=== PATIENT | female | born 1995 | race Caucasian/White ===

== ENCOUNTER 2022-03-28 06:42 | Emergency (ER) | payer BC, SELFPAY ==
[2022-03-28 06:45] VITALS: BMI 26.6
--- NOTE | 2022-03-28 06:48 | W.ED.NAVMDI ---
HPI - Nausea/Vomiting/Diarrhea General: Chief complaint: Nausea/Vomiting/Diarrhea Stated complaint: GERD Time Seen by Provider: 03/28/22 06:45 Source: patient Mode of arrival: ambulatory History of Present Illness: 26-year-old female presents to the ER via EMS complaining of persistent nausea and vomiting. She has not been at our facility for but she did offer to EMS. She has been hospitalized for this before. She states to her understanding this is due to reflux. She states the only thing that works for her is fluids Valium and morphine. Patient states she is on something for her stomach she is also on an inhaler. She did not know the specific names. She was hospitalized for similar episodes last months in [facility]. She denies any hematemesis coffee-ground emesis hematochezia or melena. MD elicited complaint: nausea and vomiting Description of vomiting: watery and bilious Associated nausea: Yes Location of pain: Diffuse Radiation: diffuse Pain consistency: constant Severity: moderate Quality: cramping Exacerbating factors: none Relieving factors: none Associated symtoms: Reports anorexia and nausea; Denies altered mental status, anxiety, bloating, change in vision, chest pain, cough, diaphoresis, decreased urine output, dizziness, dysuria, epistaxis, fatigue, fecal incontinence, fevers/chills, headache(s), malaise, myalgias, numbness, palpitations, rash, short of breath, syncope, tenesmus, tinnitus or weakness Review of Systems Const: Denies: fever(s), chills, fatigue, malaise or diaphoresis Eyes: Denies: change in vision ENMT: Denies: throat pain, tinnitus or epistaxis Card: Denies: chest pain, palpitations or syncope Resp: Denies: dyspnea, productive cough or non-productive cough GI: Reports: abdominal pain, nausea, vomiting and heartburn; Denies: hematemesis, coffee ground emesis, diarrhea, bloating or fecal incontinence : Denies: difficulty voiding, dysuria, urinary frequency or urinary urgency Skin/Breast: Denies: rash or pruritus Neuro: Denies: headache(s) or dizziness Psych: Denies: anxiety PFSH ED PFSH: Medical History (Updated 03/28/22 @ 09:26 by Jesu Brown DO) Cyclical vomiting Reflux esophagitis Surgical History (Updated 03/28/22 @ 06:54 by Jesu Brown DO) No pertinent past surgical history Social History (Updated 03/28/22 @ 06:55 by Jesu Brown DO) Smoking and tobacco status: current some day smoker Alcohol intake: never Substance/Drug Use: current Substance/Drug use type: Marijuana Physical Exam Const: COMMON NORMALS: no acute distress EXAM LIMITATIONS: no altered mental status GENERAL APPEARANCE: cooperative and comfortable ORIENTATION/CONSCIOUSNESS: Yes awake, Yes oriented to person, Yes oriented to place and Yes oriented to time HENMT: COMMON NORMALS: normocephalic, atraumatic and hearing grossly normal bilaterally HEAD & SCALP: normocephalic and atraumatic Resp: COMMON NORMALS: normal respiratory effort, No retractions, No use of accessory muscles and clear to auscultation bilaterally AUSCULTATION: clear to auscultation bilaterally Cardio: COMMON NORMALS: regular rate, regular rhythm and No murmurs present (Cardio) RATE: regular rate RHYTHM: regular rhythm GI: COMMON NORMALS: Soft to palpation and No hepatosplenomegaly present AUSCULTATION: Yes normoactive bowel sounds PALPATION: Yes Soft to palpation, No Tenderness to palpation present (GI), No Guarding due to palpation present (GI) and Yes No hepatosplenomegaly present Extremity: COMMON NORMALS: normal to inspection, capillary refill normal, no clubbing, cyanosis or edema, no calf tenderness and no pedal edema Neuro: SENSORIUM/ORIENTATION: Yes oriented to person, Yes oriented to place and Yes oriented to time Skin: COMMON NORMALS: no rashes or lesions noted GENERAL SKIN EXAM: no rashes or lesions noted Course Vital Signs: Vital signs: Vital Signs Temperature 97.4 F L 03/28/22 09:00 Pulse Rate 71 03/28/22 10:00 Respiratory Rate 18 03/28/22 10:00 Blood Pressure 136/79 03/28/22 09:00 Pulse Oximetry 100 03/28/22 10:00 Oxygen Delivery Me thod 03/28/22 07:20 MDM - Nausea/Vomiting/Diarrhea Medical Decision Making Labs and imaging reviewed. Nausea vomiting resolved with medications given patient does regularly use marijuana. She has had visits this is due to her reflux. Discussed with her at that reflux generally does not cause this type of symptoms. Recommend abstinence from marijuana can use olanzapine and buccal Ativan as needed for recurrence clear liquid diet for today then advance as tolerated. Medical Records I reviewed the patient's medical records. Lab Data I reviewed the patient's lab results. 03/28/22 07:24 12 07:24 Laboratory Results WBC 13.8 10^3/uL (4.0-10.0) H 03/28/22 07:24 RBC 4.94 10^6/uL (4.1-5.3) 03/28/22 07:24 Hgb 14.5 g/dL (11.5-15.3) 03/28/22 07:24 Hct 42.9 % (37.0-47.0) 03/28/22 07:24 MCV 86.8 fl (81-99) 03/28/22 07:24 MCH 29.4 pg (28.0-34.0) 03/28/22 07:24 MCHC 33.8 g/dL (30.0-36.0) 03/28/22 07:24 RDW 13.6 % (12.1-15.1) 03/28/22 07:24 Plt Count 282 10^3/cmm (130-400) 03/28/22 07:24 MPV 11.6 fL (7.4-10.4) H 03/28/22 07:24 Neut % (Auto) 79.9 % 03/28/22 07:24 Lymph % (Auto) 12.7 % 03/28/22 07:24 [place] % (Auto) 5.4 % 03/28/22 07:24 Eos % (Auto) 1.3 % 03/28/22 07:24 Baso % (Auto) 0.4 % 03/28/22 07:24 Neut # (Auto) 10.99 10^3/uL (1.8-7.7) H 03/28/22 07:24 Lymph # (Auto) 1.8 10^3/uL (0.8-4.8) 03/28/22 07:24 Saline # (Auto) 0.7 10^3/uL (0.2-0.9) 03/28/22 07:24 Eos # (Auto) 0.2 10^3/uL (0.0-0.8) 03/28/22 07:24 Baso # (Auto) 0.1 10^3/uL (0.0-0.1) 03/28/22 07:24 Nucleated RBC % (auto) 0 % 03/28/22 07:24 Nucleated RBCs # 0.0 /100WBC 03/28/22 07:24 Sodium 140 mmol/L (136-145) 03/28/22 07:24 Potassium 4.5 mmol/L (3.5-5.1) 03/28/22 07:24 Chloride 106 mmol/L (98-107) 03/28/22 07:24 Carbon Dioxide 16 mmol/L (22-29) L 03/28/22 07:24 Anion Gap 22.5 (5-19) H 03/28/22 07:24 BUN 6 mg/dL (6-20) 03/28/22 07:24 Creatinine 0.8 mg/dL (0.5-0.9) 03/28/22 07:24 GFR Calculation 85.4 mL/min (90-130) L 03/28/22 07:24 Glucose 141 mg/dL (65-115) H 03/28/22 07:24 Calculated Osmolality 290 mOsm/kg (285-295) 03/28/22 07:24 Calcium 9.8 mg/dL (8.5-10.5) 03/28/22 07:24 Total Bilirubin 0.3 mg/dL (0.15-1.2) 03/28/22 07:24 AST 21 U/L (0-32) 03/28/22 07:24 ALT 16 U/L (0-33) 03/28/22 07:24 Alkaline Phosphatase 92 U/L (35-105) 03/28/22 07:24 Total Protein 7.0 g/dL (6.6-8.7) 03/28/22 07:24 Albumin 4.5 g/dL (3.5-5.2) 03/28/22 07:24 Globulin 2.5 g/dL (1.3-4.6) 03/28/22 07:24 HCG, Qual Negative (Negative) 03/28/22 07:24 Urine Color Yellow (Yellow) 03/28/22 08:17 Urine Appearance Clear (CLEAR) 03/28/22 08:17 Urine pH 8 (5-7) H 03/28/22 08:17 Ur Specific [place] 1.010 (1.005-1.030) 03/28/22 08:17 Urine Protein Neg (Negative) 03/28/22 08:17 Urine Glucose (UA) Norm (Normal) 03/28/22 08:17 Urine Ketones 2+ (Negative) H 03/28/22 08:17 Urine Blood 2+ (Negative) H 03/28/22 08:17 Urine Nitrate Negative (Negative) 03/28/22 08:17 Urine Bilirubin Neg (Negative) 03/28/22 08:17 Prot Sulfosalicylic Acd Negative (Negative) 03/28/22 08:17 Urine Urobilinogen Norm mg/dL (Negative) 03/28/22 08:17 Ur Leukocyte Esterase Negative (Negative) 03/28/22 08:17 Urine RBC 0-4 /hpf (0-2) H 03/28/22 08:17 Urine WBC None /hpf (0-5) 03/28/22 08:17 Ur Squamous Epith Cells 0-4 /hpf (0-5) H 03/28/22 08:17 Amorphous Sediment Not Reportable 03/28/22 08:17 Urine Bacteria Trace /hpf (NONE) 03/28/22 08:17 Discharge Plan Discharge Patient Disposition: Home Clinical Impression: Cyclic vomiting syndrome Condition: Stable Prescriptions: New olanzapine 10 mg tablet,disintegrating 10 mg PO .Every 6 hours PRN (Reason: nausea and vomiting) Qty: 20 0RF Rx Instructions: Use sublingual every 6 hours as needed for nausea and vomiting Ativan 2 mg tablet 2 mg buccal Q6H PRN (Reason: nausea and vomiting) Qty: 14 0RF Discontinued diazepam 5 mg Tablet 5 mg PO BID PRN (Reason: Anxiety) No Action Prozac 40 mg Capsule 40 mg PO DAILY prazosin 1 mg Capsule 1 mg PO BEDTIME Protonix 40 mg Tablet,Delayed Release (Dr/Ec) 40 mg PO DAILY Advair Diskus 500-50 mcg/dose Blister With Device 1 inh INHALATION BID azelastine 137 mcg (0.1 %) Aerosol,[place] 1 - 2 spray INTRANASAL BID albuterol sulfate 90 mcg/actuation Hfa Aerosol Inhaler 2 puff INHALATION QID PRN (Reason: Shortness Of Breath) norethindrone (contraceptive) 0.35 mg Tablet 0.35 mg PO DAILY propranolol 20 mg Tablet 20 mg PO DAILY Zofran ODT 4 mg Tablet,Disintegrating 4 mg PO QID PRN (Reason: Nausea And Vomiting) Discharge Orders: Discharge ED (Routine); Ordered 03/28/22 Ordered By: Jesu Brown Discharge Diet: Clear Liquid Discharge Activity: Resume usual activity Patient Instructions: Opioid Safety, Pain Management Activity Restrictions/Additional Instructions: You were seen today for persistent nausea and vomiting. Per your history suspect that you have cyclic vomiting. You should be aware that the use of marijuana can worsen this would recommend that you abstain from the use of marijuana. You can use the lorazepam and olanzapine every 6 hours as needed for recurrent episodes of nausea and vomiting. These will be sedating. Recommend that you follow-up with your primary care physician if you have persistent or recurrent issues. 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
[2022-03-28 06:50] VITALS: BP 113/85; PULSE 79; RESP 17; O2SAT 100
[2022-03-28] MEDS: LORazepam 2 mg/mL INJ 1 mL IVP (07:18)
[2022-03-28] MEDS: haloperidol inj 5 mg/mL INJ 1 mL IVP (07:19)
[2022-03-28] MEDS: sodium chloride 0.9% 1,000 ML 999 ML IV ×2 (07:19→09:04)
[2022-03-28 07:20] VITALS: BP 113/85; PULSE 83; RESP 19; O2SAT 100
[2022-03-28 07:33] LABS: Basophils # 0.1 10^3/uL (0.0-0.1); Basophils % 0.4 %; Eosinophils # 0.2 10^3/uL (0.0-0.8); Eosinophils % 1.3 %; Hematocrit 42.9 % (37.0-47.0); Hemoglobin 14.5 g/dL (11.5-15.3); Lymphocytes # 1.8 10^3/uL (0.8-4.8); Lymphocytes % 12.7 %; Mean Corpuscular HGB Conc 33.8 g/dL (30.0-36.0); Mean Corpuscular Hemoglobin 29.4 pg (28.0-34.0); Mean Corpuscular Volume 86.8 fl (81-99); Mean Platelet Volume 11.6 fL (7.4-10.4); Monocytes # 0.7 10^3/uL (0.2-0.9); Monocytes % 5.4 %; Neutrophils # 10.99 10^3/uL (1.8-7.7); Neutrophils % 79.9 %; Nucleated Red Blood Cells % 0 %; Platelet Count 282 10^3/cmm (130-400); Red Blood Count 4.94 10^6/uL (4.1-5.3); Red Cell Distribution Width 13.6 % (12.1-15.1); White Blood Count 13.8 10^3/uL (4.0-10.0)
--- NOTE | 2022-03-28 07:48 | ECG_ITS ---
[facility] Test Date: 2022-03-28 Pat Name: JEANNA GEE Department: Room: Gender: Female Automation Lead: : 1995 Requested By: Jesu Hays Order Number: [id number] Marquise MD: Amaris Griffith M.D. Measurements Intervals [place] Rate: 58 P: 68 UT: 132 QRS: 88 QRSD: 90 T: 76 QT: 453 QTc: 445 Interpretive Statements SINUS BRADYCARDIA WITH MARKED SINUS ARRHYTHMIA No previous ECG available for comparison Electronically Signed On 03-28-2022 19:01:32 BILLING ADMINISTRATOR by Amaris Griffith M.D. [email or web address]
[2022-03-28 08:00] LABS: HCG, Serum Qual Negative (Negative)
[2022-03-28 08:07] LABS: Albumin Level 4.5 g/dL (3.5-5.2); Alkaline Phosphatase 92 U/L (35-105); Anion Gap 22.5 (5-19); Blood Urea Nitrogen 6 mg/dL (6-20); Calcium 9.8 mg/dL (8.5-10.5); Carbon Dioxide 16 mmol/L (22-29); Chloride 106 mmol/L (98-107); Globulin 2.5 g/dL (1.3-4.6); Glomerular Filtration Rate 85.4 mL/min (90-130); Glucose 141 mg/dL (65-115); Osmolality Calculated 290 mOsm/kg (285-295); Sodium 140 mmol/L (136-145); Total Bilirubin 0.3 mg/dL (0.15-1.2)
[2022-03-28 08:08] LABS: Alanine Aminotransferase 16 U/L (0-33); Aspartate Amino Transferase 21 U/L (0-32); Potassium 4.5 mmol/L (3.5-5.1)
--- NOTE | 2022-03-28 08:24 | PC.PHAR ---
Addendum entered by Risa Stewart 03/28/22 08:25[facility] symbicort 160-4.5 2p bid filled in november pt states doesnt use-states just uses advair and albuterol inhalers Original Note: pt states she takes care of her own medications-pt states she hasnt started taking the norethindrone
[2022-03-28 09:00] VITALS: BP 136/79; PULSE 83; RESP 18; TEMP 36.3; O2SAT 99
[2022-03-28 09:09] LABS: Blood Urine 2+ (Negative); Glucose Urine UA Norm (Normal); Ketones Urine 2+ (Negative); Protein Urine Neg (Negative); Urine Appearance Clear (CLEAR); Urine Color Yellow (Yellow); pH Urine 8 (5-7)
[2022-03-28 09:10] LABS: Add Urine Culture? No; Add Urine Microscopic? YES; Bacteria Urine TRACE /hpf; Bilirubin Urine Neg (Negative); Leukocyte Esterase Urine Negative (Negative); Nitrate Urine Negative (Negative); RBC Urine 0-4 /hpf (0-2); Squamous Epithelial Cell Urine 0-4 /hpf (0-5); Sulfosalicylic Acid Urine Negative (Negative); Urobilinogen Urine Norm (Negative)
[2022-03-28 10:00] VITALS: PULSE 71; RESP 18; O2SAT 100
[2022-03-28] MEDS: lactated ringers 1,000 ML 999 ML IV (10:03)
[2022-03-28] MEDS: haloperidol inj 5 mg/mL INJ 1 mL 2.5 MG IVP (10:03)
== END 2022-03-28 11:45 | disposition home or self-care (01) ==
PROVIDERS: Emergency Provider Family Medicine
DX: R11.15 Cyclical vomiting syndrome unrelated to migraine (principal); R00.1 Bradycardia, unspecified; F17.210 Nicotine dependence, cigarettes, uncomplicated
CPT/HCPCS: 80053; 81001; 84703; 85025; 93005; 96361; 96374; 96375; 96376; 99284; J1630; J2060; J7030; J7120